=== PATIENT | female | born 1975 | race Caucasian/White ===

== ENCOUNTER 2018-10-30 12:49 | Emergency (ER) | payer MEDICAID ==
[~2018-10-30] VITALS: Ht 162.6 cm; Wt 54.0 kg
[2018-10-30 12:55] VITALS: BP 111/72; Ht 162.6 cm; Wt 54.0 kg
== END 2018-10-30 14:19 | disposition home or self-care (01) ==
LOC: ED 12:49
DX: S00.03XA Contusion of scalp, initial encounter (principal); W01.0XXA Fall on same level from slipping, tripping and stumbling without subsequent striking against object, initial encounter; Y93.89 Activity, other specified; Y92.89 Other specified places as the place of occurrence of the external cause; Y99.8 Other external cause status